=== PATIENT | female | born 1995 | race Caucasian/White ===

== ENCOUNTER 2020-07-28 02:02 | Emergency (ER) | payer OTHER, SELFPAY ==
[2020-07-28 02:06] VITALS: BP 125/62; PULSE 95; RESP 18; TEMP 36.6; O2SAT 96; BMI 23.3
--- NOTE | 2020-07-28 02:40 | ED.GENADULT ---
HPI - General Adult General Chief complaint: Back Pain/Injury Stated complaint: BILATERAL FLANK PAIN Time Seen by Provider: 07/28/20 02:05 Source: patient Mode of arrival: ambulatory History of Present Illness HPI narrative: This is a 25-year-old female who presents with bilateral flank pain that started approximately 3:00 p.m. today she attributes the pain to ?cracking her back? but then states she felt instant pain. This has been associated with nausea and chills but she denies fevers or vomiting. She denies any diarrhea and states her last bowel movement was yesterday and normal for her. She denies any urinary pain/burning/frequency and states her LMP is 07/04/2020. She states that her mother took her temperature earlier and that it was 101. Related Data Allergies Allergy/AdvReac Type Severity Reaction Status Date / Time No Known Allergies Allergy Verified 07/28/20 02:11 Review of Systems Review of Systems: Pertinent positives and negatives as stated in HPI 10 point review of systems is otherwise negative. [facility] Past Medical History Source: nursing notes reviewed Medical History Asthma Surgical History No significant past surgical history Social History Social History Advance Directives: No Physical Exam Vital Signs: Vital Signs: Last Vital Signs Temp 97.9 F 07/28/20 02:06 Pulse 95 07/28/20 02:06 Resp 18 07/28/20 02:06 BP 125/62 07/28/20 02:06 Pulse Ox 96 07/28/20 02:06 Body Mass Index 23.3 VITAL SIGNS: Reviewed. GENERAL: Well developed, well nourished, in no acute distress. HEAD: Normocephalic/atraumatic EYES: PERRLA, EOMI EARS: Ext canals without abnormality, TMs non-bulging and non-erythematous NOSE: Nares patent bilateral OROPHARYNX: no oral lesions noted, posterior pharynx erythematous without noted tonsillar enlargement/erythema/exudates NECK: Supple, no adenopathy LUNGS: Normal breath sounds. No adventitious sounds or accessory muscle use. SpO2<96> CARDIOVASCULAR: Regular rate and rhythm without noted murmurs ABDOMEN: Soft, tenderness noted over the suprapubic/right lower quadrant area, non-distended with bowel sounds. No CVA tenderness noted SKIN: Inspection of the skin reveals no rashes NEUROLOGIC: Alert and oriented x 4. Strength and sensation to light touch were grossly intact x 4. Course Course Course Narrative: This is a 25-year-old female with history and clinical presentation suggestive UTI, appendicitis, ovarian cyst, low clinical suspicion for renal colic and will rule out ectopic. On review of all investigations there is no evidence to suggest a UTI and although there was a noted leukocytosis which raises further suspicion of possible early appendicitis this was discussed with the patient at bedside and she has declined imaging at this time and wishes to proceed with a conservative approach and knows that if any of her symptoms worsen that she should return to the emergency department for completion of workup. On re-evaluation patient does state that her presenting symptoms have gradually resolved and she wishes to be discharged home. Medical Decision Making Lab Data Result diagrams: 07/28/20 04:39 07/28/20 04:39 Labs: Lab Results 07/28/20 07/28/20 07/28/20 Range/Units 03:28 03:28 04:39 WBC 11.0 H (4.8-10.8) X10*3/uL RBC 4.17 L (4.20-5.50) X10*6/uL Hgb 11.9 L (12.0-16.0) g/dl Hct 36.6 L (37-47) % MCV 87.8 (80-98) fL MCH 28.5 (27.0-33.0) pg MCHC 32.5 (31.0-35.0) g/dl RDW 12.0 (11.0-16.0) % Plt Count 223 (160-400) X10*3/uL MPV 10.2 (9.4-12.3) fL Immature Gran % (Auto) 0.4 (0.0-0.4) % Neut % (Auto) 78.2 H (45-73) % Lymph % (Auto) 14.5 L (20-40) % Roane % (Auto) 5.9 (2-11) % Eos % (Auto) 0.8 (0-4) % Baso % (Auto) 0.2 (0-2) % Lymph # (Auto) 1.6 (1.2-4.9) X10*3/uL Roane # (Auto) 0.7 (0.1-1.2) X10*3/uL Eos # (Auto) 0.1 (0.0-0.4) X10*3/uL Baso # (Auto) 0.0 (0.0-0.2) X10*3/uL Abs Immat Gran (auto) 0.04 H (0.00-0.03) X10*3/uL Absolute Neuts (auto) 8.6 H (2.0-8.3) X10*3/uL Absolute Nucleated RBC 0.000 (0.0-0.012) X10*3/uL Nucleated RBC % (auto) 0.0 (0.0-0.2) /100WBC Sodium (135-145) mmol/L Potassium (3.3-5.1) mmol/L Chloride (96-108) mmol/L Carbon Dioxide (22-29) mmol/L Anion Gap (12-20) BUN (9-16) mg/dL Creatinine (0.5-1.4) mg/dL Estim Creat Clear Calc Estimated GFR Random Glucose (60-115) mg/dL Calcium (8.4-10.2) mg/dL Total Bilirubin (0.0-1.0) mg/dL AST (5-31) U/L ALT (0-31) U/L Alkaline Phosphatase (39-117) U/L Total Protein (6.5-8.0) g/dL Albumin (3.5-5.0) g/dL Urine Color YELLOW Urine Appearance CLEAR Urine pH 6.5 (5.0-8.0) Ur Specific [place] 1.020 (1.005-1.025) Urine Protein NEG (NEG-TRACE) MG/DL Urine Glucose (UA) NEG (NEG) MG/DL Urine Ketones NEG (NEG) MG/DL Urine Blood TRACE (NEG) Urine Nitrite NEG (NEG) Ur Leukocyte Esterase NEG (NEG) Urine RBC 0-2 (0) /HPF Urine WBC 0-2 (0-4) /HPF Ur Squamous Epith Cells TRACE /LPF Amorphous Sediment TRACE /LPF Urine Bacteria TRACE /LPF Urine Mucus TRACE /LPF Urine Test NEGATIVE (NEGATIVE) 07/28/20 Range/Units 04:39 WBC (4.8-10.8) X10*3/uL RBC (4.20-5.50) X10*6/uL Hgb (12.0-16.0) g/dl Hct (37-47) % MCV (80-98) fL MCH (27.0-33.0) pg MCHC (31.0-35.0) g/dl RDW (11.0-16.0) % Plt Count (160-400) X10*3/uL MPV (9.4-12.3) fL Immature Gran % (Auto) (0.0-0.4) % Neut % (Auto) (45-73) % Lymph % (Auto) (20-40) % Roane % (Auto) (2-11) % Eos % (Auto) (0-4) % Baso % (Auto) (0-2) % Lymph # (Auto) (1.2-4.9) X10*3/uL Roane # (Auto) (0.1-1.2) X10*3/uL Eos # (Auto) (0.0-0.4) X10*3/uL Baso # (Auto) (0.0-0.2) X10*3/uL Abs Immat Gran (auto) (0.00-0.03) X10*3/uL Absolute Neuts (auto) (2.0-8.3) X10*3/uL Absolute Nucleated RBC (0.0-0.012) X10*3/uL Nucleated RBC % (auto) (0.0-0.2) /100WBC Sodium 139 (135-145) mmol/L Potassium 4.2 (3.3-5.1) mmol/L Chloride 105 (96-108) mmol/L Carbon Dioxide 20 L (22-29) mmol/L Anion Gap 18 (12-20) BUN 11 (9-16) mg/dL Creatinine 0.71 (0.5-1.4) mg/dL Estim Creat Clear Calc 97.4 Estimated GFR > 60 Random Glucose 86 (60-115) mg/dL Calcium 9.6 (8.4-10.2) mg/dL Total Bilirubin 0.8 (0.0-1.0) mg/dL AST 27 (5-31) U/L ALT 22 (0-31) U/L Alkaline Phosphatase 80 (39-117) U/L Total Protein 7.6 (6.5-8.0) g/dL Albumin 4.8 (3.5-5.0) g/dL Urine Color Urine Appearance Urine pH (5.0-8.0) Ur Specific [place] (1.005-1.025) Urine Protein (NEG-TRACE) MG/DL Urine Glucose (UA) (NEG) MG/DL Urine Ketones (NEG) MG/DL Urine Blood (NEG) Urine Nitrite (NEG) Ur Leukocyte Esterase (NEG) Urine RBC (0) /HPF Urine WBC (0-4) /HPF Ur Squamous Epith Cells /LPF Amorphous Sediment /LPF Urine Bacteria /LPF Urine Mucus /LPF Urine Test (NEGATIVE) Discharge Plan Discharge Clinical Impression: Discomfort of back Patient Disposition: Home, Self-Care Instructions: Back Pain (ED) Additional Instructions: Please follow-up with your primary care provider for re-evaluation in 2-3 days. Do not hesitate to return to this emergency department should you experience any acute worsening of your symptoms. Referrals: Physician,Unknown [Primary Care Provider] - 2 days
[2020-07-28 03:36] LABS: Glucose Urine UA NEG (NEG); Leukocyte Esterase Urine NEG (NEG); Nitrite Urine NEG (NEG); PH 6.5 (5.0-8.0); Urine Blood TRACE (NEG); Urine Ketones NEG (NEG); Urine Protein NEG (NEG-TRACE)
[2020-07-28 03:44] LABS: Appearance Urine CLEAR; Color Urine YELLOW
[2020-07-28 03:51] LABS: Amorphous Sediment Urine TRACE /LPF; Bacteria Urine TRACE /LPF; Mucus Urine TRACE /LPF; RBC Urine 0-2 /HPF (0); Squamous Epithelial Cell Urine TRACE /LPF; UPreg QC Valid YES; Urine Pregnancy NEGATIVE (NEGATIVE); WBC Urine 0-2 /HPF (0-4)
--- NOTE | 2020-07-28 03:52 | PC.NURSE ---
PT REFUSING LABS AT THIS TIME, AND MEDICATIONS, STATES SHE WILL GIVE URINE SAMPLE AND GO FROM THERE
[2020-07-28 04:43] LABS: Basophils Percent Auto 0.2 % (0-2); Eosinophils Absolute Auto 0.1 X10*3/uL (0.0-0.4); Eosinophils Percent Auto 0.8 % (0-4); Hematocrit 36.6 % (37-47); Hemoglobin 11.9 g/dl (12.0-16.0); Imm Gran Abs Auto 0.04 X10*3/uL (0.00-0.03); Imm Gran Pct Auto 0.4 % (0.0-0.4); Lymphocytes Absolute Auto 1.6 X10*3/uL (1.2-4.9); Lymphocytes Percent Auto 14.5 % (20-40); MANUAL DIFF FLAG NO; Mean Corpuscular HGB Conc 32.5 g/dl (31.0-35.0); Mean Corpuscular Hemoglobin 28.5 pg (27.0-33.0); Mean Corpuscular Volume 87.8 fL (80-98); Mean Platelet Volume 10.2 fL (9.4-12.3); Monocytes Absolute Auto 0.7 X10*3/uL (0.1-1.2); Monocytes Percent Auto 5.9 % (2-11); Neutrophils Absolute Auto 8.6 X10*3/uL (2.0-8.3); Neutrophils Percent Auto 78.2 % (45-73); Platelet Count 223 X10*3/uL (160-400); Red Blood Count 4.17 X10*6/uL (4.20-5.50)
[2020-07-28 05:13] LABS: Alanine Aminotransferase 22 U/L (0-31); Albumin Level 4.8 g/dL (3.5-5.0); Alkaline Phosphatase 80 U/L (39-117); Anion Gap 18 (12-20); Aspartate Amino Transferase 27 U/L (5-31); Bilirubin Total 0.8 mg/dL (0.0-1.0); Blood Urea Nitrogen 11 mg/dL (9-16); Calcium 9.6 mg/dL (8.4-10.2); Carbon Dioxide 20 mmol/L (22-29); Chloride 105 mmol/L (96-108); Creatinine Clr Calc Pharmacy 97.4; Estimated Glomerular Filt Rate > 60; Glucose Random 86 mg/dL (60-115); Potassium 4.2 mmol/L (3.3-5.1); Sodium 139 mmol/L (135-145); Total Protein 7.6 g/dL (6.5-8.0)
== END 2020-07-28 05:40 | disposition home or self-care (01) ==
PROVIDERS: Emergency Provider Student in an Organized Health Care Education/Training Program
DX: R10.9 Unspecified abdominal pain (principal); M54.5 Low back pain
CPT/HCPCS: 36415; 80053; 81001; 81025; 85025; 96372; 99283; 99284

== ENCOUNTER 2021-05-30 09:14 | Emergency (ER) | payer OTHER, SELFPAY ==
--- NOTE | ~2021-05-30 | CT_ITS ---
EXAMINATION: CT HEAD WITHOUT CONTRAST CLINICAL INFORMATION: Dizziness, status post head injury. Walking with slight left fourth and gait COMPARISON: None TECHNIQUE: Contiguous axial imaging was performed from the skull base to vertex without intravenous administration of contrast. This CT examination was performed using dose optimization techniques as appropriate, variously including the following: *Automated exposure control *Adjustment of mA and/or kV according to patient size (this includes techniques or standardized protocols for targeted exams where dose is matched to indication/reason for exam; i.e. extremities or head) *Use of iterative reconstruction technique DLP: 575 mGy-cm FINDINGS: There is no evidence of acute intracranial hemorrhage or territorial infarction. No abnormal mass effect or midline shift is seen. [place] to white matter differentiation is well preserved. No extra-axial fluid collections are identified. The ventricles are normal in size. There is no abnormal attenuation within the brain parenchyma. There is a small polyp or retention cyst left posterior ethmoid sinus. Rest of the paranasal sinuses are clear. CT/CT head/brain wo con IMPRESSION: No acute intracranial process seen. Small polyp or retention cyst left posterior ethmoid sinus.
[2021-05-30 09:29] VITALS: BP 112/62; PULSE 81; RESP 18; TEMP 36.8; O2SAT 100; BMI 22.4
--- NOTE | 2021-05-30 10:02 | ED_ITS ---
HPI - Head Injury General Chief complaint: Head Injury <ARTHUR Schwartz Last Filed: 05/30/21 11:01> Stated complaint: hit in l eye with basketball at work <ARTHUR Schwartz Last Filed: 05/30/21 11:01> Time Seen by Provider: 05/30/21 09:39 <ARTHUR Schwartz Last Filed: 05/30/21 11:01> Source: patient <ARTHUR Schwartz Last Filed: 05/30/21 11:01> Mode of arrival: ambulatory <ARTHUR Schwartz Last Filed: 05/30/21 11:01> History of Present Illness HPI Narrative: 26-year-old female with a past medical history of asthma presenting to the emergency department complaining of headache, dizziness, nausea, unsteady gait this morning s/p head injury yesterday while at work. Patient reports was hit with basketball to left side of head/face yesterday, caused glasses to break, denies LOC. Was evaluated by resist coater developer yesterday determined no eye involvement/injury. Denies taking anticoagulation. Denies vision change/loss, neck/back pain, numbness/tingling, weakness, vomiting <ARTHUR Schwartz Last Filed: 05/30/21 11:01> MD Complaint: head injury <ARTHUR Schwartz Last Filed: 05/30/21 11:01> Onset (ago): day(s) <ARTHUR Schwartz Last Filed: 05/30/21 11:01> Related Data Home medications: Previous Rx's Medication Instructions Recorded meclizine 25 mg tablet 25 mg PO TID PRN #14 tab 05/30/21 <ARTHUR Schwartz Last Filed: 05/30/21 11:01> Allergies/Adverse reactions: Allergies Allergy/AdvReac Type Severity Reaction Status Date / Time No Known Allergies Allergy Verified 05/30/21 09:32 <ARTHUR Schwartz Last Filed: 05/30/21 11:01> Review of Systems Verdana 4l Review of Systems: Verdana 4d Verdana 4d Constitutional: No Fever, No Chills, No Fatigue, No Malaise ENT/Mouth: No Ear Pain, No Nasal Congestion, No sore throat Eyes: No Eye Pain, No Swelling, No Redness, No Vision Changes Cardiovascular: No Chest Pain, No SOB, No Palpitations RespiratoryRespiratory: No Cough, No Dyspnea Gastrointestinal: + Nausea, No Vomiting, No Diarrhea, No Constipation, No Abdominal pain Genitourinary: No Dysuria, No Urinary Frequency, No Flank Pain Musculoskeletal: No joint pain, No Myalgias, No Joint Swelling Skin: No Skin Lesions, No rash Neuro: No Weakness, No Numbness, No Paresthesias, No Loss of Consciousness, + Dizziness, + Headache <ARTHUR Schwartz - Last Filed: 05/30/21 11:01> Yes all other systems are reviewed and are negative <ARTHUR Schwartz - Last Filed: 05/30/21 11:01> Neurologic: Denies Abnormal speech present and Denies Sensory deficit (Neuro) <ARTHUR Schwartz - Last Filed: 05/30/21 11:01> [facility] Past Medical History Attestation statement: The following information was validated with the patient. <ARTHUR Schwartz - Last Filed: 05/30/21 11:01> Medical History: Medical History Asthma <ARTHUR Schwartz - Last Filed: 05/30/21 11:01> Surgical History: Surgical History No significant past surgical history <ARTHUR Schwartz - Last Filed: 05/30/21 11:01> Social History Social History: Social History Advance Directives: No Advance Directives Information Provided: No Patient : No <ARTHUR Schwartz Last Filed: 05/30/21 11:01> Physical Exam Verdana 4l Vital Signs: Verdana 4d Verdana 4d Vital Signs: Verdana 4d Verdana 4Bd Last Vital Signs Verdana 4d Consultant New 4d Consultant New 4d Temp 98.3 F 05/30/21 09:29 Consultant New 4d Pulse 81 05/30/21 09:29 Consultant New 4d Resp 18 05/30/21 09:29 BP 112/62 05/30/21 09:29 Pulse Ox 100 05/30/21 09:29 BMI result Body Mass Index 22.4 <ARTHUR Schwartz - Last Filed: 05/30/21 11:01> Const: General: cooperative, healthy appearing, no acute distress, well developed, alert and awake <ARTHUR Schwartz - Last Filed: 05/30/21 11:01> Orientation/consciousness: patient oriented x3 <ARTHUR Schwartz - Last Filed: 05/30/21 11:01> Limitations: no limitations <ARTHUR Schwartz - Last Filed: 05/30/21 11:01> HENMT: Head: Yes normal to inspection, Yes atraumatic, No Tee's sign and No raccoon eyes <ARTHUR Schwartz - Last Filed: 05/30/21 11:01> Ears: hearing grossly normal bilaterally <ARTHUR Schwartz - Last Filed: 05/30/21 11:01> General nose exam: Normal external nose present <ARTHUR Schwartz - Last Filed: 05/30/21 11:01> Face and sinus: Yes normal facial exam <ARTHUR Schwartz - Last Filed: 05/30/21 11:01> Throat: Yes posterior oropharynx normal, Yes tonsils normal and Yes uvula midline <ARTHUR Schwartz - Last Filed: 05/30/21 11:01> Eyes: General: appearance normal, both eyes and all related structures <ARTHUR Schwartz - Last Filed: 05/30/21 11:01> Pupils: Equal, round and reactive pupils present <ARTHUR Schwartz - Last Filed: 05/30/21 11:01> EOM: EOMs intact bilaterally and Nystagmus present <ARTHUR Schwartz - Last Filed: 05/30/21 11:01> Neck: Other: no midline cervical spinous ttp <ARTHUR Schwartz - Last Filed: 05/30/21 11:01> Neck: Yes normal visual inspection and Yes no meningeal signs <ARTHUR Schwartz - Last Filed: 05/30/21 11:01> Resp: Effort & Inspection: normal respiratory effort and no respiratory distress <Ariane Anumnic PA - Last Filed: 05/30/21 11:01> Auscultation: clear to auscultation bilaterally <Ariane Dillon PA - Last Filed: 05/30/21 11:01> Cardio: Rate: regular rate <Ariane Dillon PA - Last Filed: 05/30/21 11:01> Heart sounds: S1 normal heart sound present and S2 normal heart sound present <Ariane Dillon PA - Last Filed: 05/30/21 11:01> GI: Inspection: Yes normal to inspection <Ariane Dillon PA - Last Filed: 05/30/21 11:01> Palpation (GI): Soft to palpation, nontender, no guarding and not rigid <Ariane Dillon PA - Last Filed: 05/30/21 11:01> Skin: Rashes: no rashes <Ariane Dillon PA - Last Filed: 05/30/21 11:01> Wounds: no wounds <Ariane Dillon PA - Last Filed: 05/30/21 11:01> Neuro: Other: steady gait with slight leftward direction <Ariane Dillon PA - Last Filed: 05/30/21 11:01> General: patient oriented x3, gait normal, tone normal, moves all extremities, no meningeal signs, no focal motor deficits and CN's II-XI intact bilaterally <Ariane Dillon PA - Last Filed: 05/30/21 11:01> Cranial nerves: Yes CN's II-XII intact bilaterally, Yes Equal, round and reactive pupils present, Yes Bilaterally intact EOM present and Yes Nystagmus present horizontal fast component to the left <Ariane Dillon PA - Last Filed: 05/30/21 11:01> Cognition (Neuro): normal cognition <Ariane Dillon PA - Last Filed: 05/30/21 11:01> Speech: No Abnormal speech present <Ariane Dillon PA - Last Filed: 05/30/21 11:01> Gait exam (Neuro): not ataxic <Ariane Dillon PA - Last Filed: 05/30/21 11:01> Motor exam (neuro): 5/5 motor strength present throughout, Pronator motor function not present and no tremor noted <ARTHUR Schwartz Last Filed: 05/30/21 11:01> Sensory Exam: No Sensory deficit (Neuro) <ARTHUR Schwartz Last Filed: 05/30/21 11:01> Coordination: [id number] test normal <ARTHUR Schwartz Last Filed: 05/30/21 11:01> Romberg Test: Negative <ARTHUR Schwartz Last Filed: 05/30/21 11:01> Extrem: General: Yes normal to inspection <ARTHUR Schwartz Last Filed: 05/30/21 11:01> Course Course Course Narrative: -1056--CT head/brain wo con IMPRESSION: No acute intracranial process seen. Small polyp or retention cyst left posterior ethmoid sinus. >> results discussed with patient. Reports symptomatic improvement after p.o. medications. Worsening signs and symptoms and strict return precautions discussed. Patient should follow up with PCP. She verbalized understanding feel safe for discharge, this time <ARTHUR Schwartz Last Filed: 05/30/21 11:01> MDM - Head Injury MDM Narrative Medical decision making narrative: 26-year-old female with a past medical history of asthma presenting to the emergency department complaining of headache, dizziness, nausea, unsteady gait this morning s/p head injury yesterday while at work. On exam vital signs stable, NAD/nontoxic appearing, no focal neuro deficits, ambulating with steady slow gait with slight leftward direction in, no ataxia, left sided nystagmus noted. Likely BPPV vs Concussion/postconcussion syndrome. Lower concern for SAH/ICH Plan: Head CT, p.o. medications, re-evaluated <ARTHUR Schwartz Last Filed: 05/30/21 11:01> Differential Diagnosis Differential diagnosis: Likely concussion without loss of consciousness, closed head injury and postconcussion syndrome <ARTHUR Schwartz Last Filed: 05/30/21 11:01> Medical Records Attestation: I reviewed the patient's medical records. <ARTHUR Schwartz Last Filed: 05/30/21 11:01> Lab Data Attestation: I reviewed the patient's lab results. <ARTHUR Schwartz - Last Filed: 05/30/21 11:01> Discharge Plan Discharge Clinical Impression: Concussion without loss of consciousness <ARTHUR Schwartz - Last Filed: 05/30/21 11:01> Patient Disposition: Home, Self-Care <ARTHUR Schwartz Last Filed: 05/30/21 11:01> Instructions: Concussion (ED) <ARTHUR Schwartz - Last Filed: 05/30/21 11:01> Additional Instructions: Your head CT is unremarkable. Is likely your having postconcussive syndrome. Take Tylenol and Motrin at home for headache. Practice brain rest, avoid bright lights, TV screen time, computer screens, phone time Meclizine will help with dizziness. The stay hydrated at home. If symptoms persist or worsen, constant worsening dizziness, headache, persistent nausea/vomiting, you are unable to eat or drink, develops weakness please return to the emergency department immediately. Please follow-up with her doctor <ARTHUR Schwartz - Last Filed: 05/30/21 11:01> Prescriptions: New meclizine 25 mg tablet 25 mg PO TID PRN (Reason: dizziness) Qty: 14 0RF <ARTHUR Schwartz - Last Filed: 05/30/21 11:01> Referrals: Physician,Unknown J [Primary Care Provider] - 2 days <ARTHUR Schwartz - Last Filed: 05/30/21 11:01> Stand Alone Forms: Work/School Release <ARTHUR Schwartz - Last Filed: 05/30/21 11:01> Interventions: ED Discharge Assessment Last Done: 05/30/21 11:34 <ARTHUR Schwartz Last Filed: 05/30/21 11:01> Discharge Date/Time: 05/30/21 11:36 <ARTHUR Schwartz Last Filed: 05/30/21 11:01>
[2021-05-30] MEDS: Acetaminophen 325 MG TABLET 650 MG PO (10:27)
[2021-05-30] MEDS: Metoclopramide HCl 10 MG TABLET PO (10:27)
[2021-05-30] MEDS: Meclizine HCl 25 MG TABLET PO (10:27)
== END 2021-05-30 11:36 | disposition home or self-care (01) ==
PROVIDERS: Emergency Provider Emergency Medicine
DX: S06.0X0A Concussion without loss of consciousness, initial encounter (principal); W21.05XA Struck by basketball, initial encounter; Y93.67 Activity, basketball; Y92.39 Other specified sports and athletic area as the place of occurrence of the external cause; Y99.0 Civilian activity done for income or pay
CPT/HCPCS: 70450; 99284

== ENCOUNTER 2021-07-12 18:03 | Emergency (ER) | payer OTHER, SELFPAY ==
[2021-07-12 18:32] VITALS: PULSE 79; RESP 18; TEMP 36.7; O2SAT 99; BMI 22.4
--- NOTE | 2021-07-12 19:10 | ED.HEATRA ---
HPI - Head Injury General Chief complaint: Head Injury Stated complaint: ?concussion/Work inj Time Seen by Provider: 07/12/21 18:51 Source: patient Mode of arrival: ambulatory Limitations: no limitations History of Present Illness HPI Narrative: 26-year-old female with a history of concussion here with reports of headache, nausea since being hit in the head today at 10:45 while working. Patient tells me she works at career [employer]. She was playing with a child when there mouth hit the right side of her restoration. Since then she has had headache and nausea. She denies any loss of consciousness at time. No dizziness, photophobia, vomiting. Patient does report some upper neck pain. No numbness, tingling or weakness of the extremities Related Data Previous Rx's Medication Instructions Recorded meclizine 25 mg tablet 25 mg PO TID PRN #14 tab 05/30/21 Allergies Allergy/AdvReac Type Severity Reaction Status Date / Time No Known Allergies Allergy Verified 07/12/21 18:32 Review of Systems Review of Systems: Yes all other systems are reviewed and are negative Constitutional: Constitutional: Reports no additional constitutional complaints, Denies body ache(s), Denies chills, Denies fever(s), Reports headache(s) and Denies weakness Eyes: Eyes: Reports no additional eye complaints and Denies change in vision ENT: Reports system reviewed and no additional complaints, except as documented, Denies dizziness, Reports headache(s), Denies nasal congestion, Denies nasal discharge and Denies neck pain Cardiovascular: Cardiovascular: Reports no additional cardiovascular complaints, Denies chest pain, Denies leg edema and Denies dyspnea Respiratory: Respiratory: Reports no additional respiratory complaints, Denies cough and Denies dyspnea Gastrointestinal: Gastrointestinal: Reports no additional gastrointestinal complaints, Denies abdominal pain, Denies diarrhea, Reports nausea and Denies vomiting Genitourinary: Genitourinary: Reports no additional female genitourinary complaints and Denies urinary incontinence Musculoskeletal: Musculoskeletal: Reports no additional musculoskeletal complaints, Denies back pain, Denies arthralgias, Denies joint swelling, Denies neck pain, Denies numbness and Denies tingling Integumentary/Breasts: Skin/Breast: Reports system reviewed and no additional complaints, except as docu and Denies rash Neurologic: Reports system reviewed and no additional complaints, except as documented, Denies Abnormal speech present, Denies dizziness, Reports headache(s), Denies numbness, Denies tingling and Denies weakness PMFSH Past Medical History Attestation statement: The following information was validated with the patient. Source: old records reviewed and nursing notes reviewed Medical History Asthma Surgical History No significant past surgical history Social History Social History Advance Directives: No Advance Directives Information Provided: No Physical Exam Vital Signs: Vital Signs: Last Vital Signs Temp 98.0 F 07/12/21 18:32 Pulse 79 07/12/21 18:32 Resp 18 07/12/21 18:32 BP 97/63 07/12/21 20:09 Pulse Ox 99 07/12/21 18:32 BMI result Body Mass Index 22.4 Const: General: cooperative, healthy appearing, comfortable and no acute distress Orientation/consciousness: patient oriented x3 Limitations: no limitations HENMT: Head: Yes normal to inspection, No Tee's sign and No raccoon eyes Head images: 1. Slight swelling. No bogginess or crepitus Ears: hearing grossly normal bilaterally and TM's normal bilaterally General nose exam: Normal external nose present Face and sinus: Yes normal facial exam Mouth: Normal oral and palatal mucosa present Throat: Yes posterior oropharynx normal and Yes tonsils normal Eyes: General: appearance normal, both eyes and all related structures Pupils: Equal, round and reactive pupils present Neck: Other: No midline tenderness, step-offs deformities. There is some tenderness the bilateral soft tissues. Neck: Yes normal visual inspection, Yes full ROM, Yes no lymphadenopathy and Yes no meningeal signs Chest: Chest palpation & inspection: normal inspection of the chest Resp: Effort & Inspection: normal respiratory effort Auscultation: clear to auscultation bilaterally Cardio: Rate: regular rate Rhythm: regular rhythm Peripheral pulses: Peripheral pulses 2+ throughout GI: Inspection: Yes normal to inspection Palpation (GI): Soft to palpation and nontender Auscultation: normal bowel sounds Back/Spine/Pelvis: Thoracic/Lumbar Spine: thoracic and lumbar spine normal to inspection Skin: General skin exam: no rashes or lesions noted Neuro: General: patient oriented x3, moves all extremities, no meningeal signs, no focal motor deficits and normal sensation to monofilament Cranial nerves: Yes CN's II-XII intact bilaterally, Yes Equal, round and reactive pupils present, Yes Bilaterally intact EOM present, Yes Nystagmus not present, Yes Normal facial strength present and Yes Midline tongue present Cognition (Neuro): normal cognition Speech: No Abnormal speech present Gait exam (Neuro): Normal gait present Motor exam (neuro): 5/5 motor strength present throughout Sensory Exam: Normal double simultaneous stimulation for sensation Deep tendon reflexes (DTR's): Right patellar reflex intensity grade: 2+ and Left patellar reflex intensity grade: 2+ Coordination: [id number] test normal, [id number] test normal, tandem gait normal and Romberg test negative Extrem: General: Yes normal to inspection Course Course Course Narrative: 26 yo female here with headache and nausea after a head strike which occurred earlier today. There was no loss of consciousness. From reports the patient it seems like a low mechanism of action. Normal neurological exam. Patient tolerating p.o.. We discussed that imaging is not warranted. She may have a mild concussion. She can follow-up outpatient with occupational health. Reviewed head injury care at home. Reviewed worrisome signs and symptoms such as severe headache, multiple episodes of vomiting, vision changes or change in behavior and when to return to the emergency room. Comfortable discharge home. [facility] - Head Injury Medical Records Attestation: I reviewed the patient's medical records. Lab Data Attestation: I reviewed the patient's lab results. Discharge Plan Discharge Clinical Impression: Concussion without loss of consciousness Patient Disposition: Home, Self-Care Instructions: Concussion (ED) Additional Instructions: Tylenol or Motrin for pain as needed Limit screen time Get plenty of rest Return for change in behavior, severe headache, multiple vomiting episodes Follow-up with occupational health or you may use our work connection here at [facility] if approved by your employer. Call [phone] Prescriptions: No Action meclizine 25 mg tablet 25 mg PO TID PRN (Reason: dizziness) Qty: 14 0RF Stand Alone Forms: Work/School Release Interventions: ED Discharge Assessment Last Done: 07/12/21 20:09 Discharge Date/Time: 07/12/21 20:10
[2021-07-12 20:09] VITALS: BP 97/63
== END 2021-07-12 20:10 | disposition home or self-care (01) ==
PROVIDERS: Emergency Provider Emergency Medicine Emergency Medical Services
DX: S06.0X0A Concussion without loss of consciousness, initial encounter (principal); W50.0XXA Accidental hit or strike by another person, initial encounter; Y93.9 Activity, unspecified; Y92.219 Unspecified school as the place of occurrence of the external cause; Y99.0 Civilian activity done for income or pay
CPT/HCPCS: 99282; 99284